=== PATIENT | female | born 1945 | race Caucasian/White ===

== ENCOUNTER 2021-02-26 13:28 | Emergency (ER) | payer BC, OTHER ==
[2021-02-26] MEDS ORDERED: ENDOCET 5-3251 EACH PO ×2 (15:59→16:14)
== END 2021-02-26 16:40 | disposition home or self-care (01) ==
LOC: ER1 13:28
DX: M48.062 Spinal stenosis, lumbar region with neurogenic claudication (principal); M43.16 Spondylolisthesis, lumbar region
CPT/HCPCS: 72100; 73522; 99283